=== PATIENT | female | born 2000 | race Caucasian/White ===

== ENCOUNTER 2022-07-05 07:07 | Emergency (ER) | payer OTHER ==
[2022-07-05 07:18] VITALS: BP 131/75; PULSE 80; RESP 16; TEMP 97.8; BMI 25.9
[2022-07-05] MEDS ORDERED: IBUPROFEN 400 MG TABLET (FP) PO ONE ×2 (07:32→08:09)
[2022-07-05] MEDS ORDERED: BACITRACIN 0.9 GM PACKET ONE (08:16)
== END 2022-07-05 08:48 | disposition home or self-care (01) ==
LOC: JER 07:07
DX: S80.912A Unspecified superficial injury of left knee, initial encounter (principal); S90.911A Unspecified superficial injury of right ankle, initial encounter; W10.9XXA Fall (on) (from) unspecified stairs and steps, initial encounter
CPT/HCPCS: 73564-TC-LT-FY; 73610-TC-RT-FY; 73630-TC-RT-FY; 99284-25